=== PATIENT | female | born 1950 | race Caucasian/White ===

== ENCOUNTER 2016-09-18 08:19 | Emergency (ER) | payer MEDICARE ==
[~2016-09-18] VITALS: Ht 165.1 cm; Wt 90.0 kg
[2016-09-18] MEDS ORDERED: ACETAMINOPHEN 500MG TABLET PO ONE (09:00)
[2016-09-18 11:10] VITALS: BP 129/61
== END 2016-09-18 11:28 | disposition home or self-care (01) ==
LOC: ER 08:51
DX: S43.402A Unspecified sprain of left shoulder joint, initial encounter (principal); E11.9 Type 2 diabetes mellitus without complications; I10 Essential (primary) hypertension; E78.00 Pure hypercholesterolemia, unspecified; Z98.890 Other specified postprocedural states; X58.XXXA Exposure to other specified factors, initial encounter; Y93.89 Activity, other specified; Y92.018 Other place in single-family (private) house as the place of occurrence of the external cause
CPT/HCPCS: 73030; 99284

== ENCOUNTER 2021-01-21 16:16 | Inpatient (IN) | payer MEDICARE, MEDICAID ==
[~2021-01-21] VITALS: Ht 165.1 cm; Wt 83.9 kg
[2021-01-21 18:00] LABS: BASOPHILS % 0.4 % (0.0-2.0); EOSINOPHILS % 0.1 % (0.0-5.0); HEMATOCRIT. 34.5 % (36.0-48.0); HEMOGLOBIN. 11.1 g/dL (12.0-16.0); LYMPHOCYTES % 13.3 % (20.0-50.0); MEAN CORPUSCULAR HEMOGLOBIN 26.4 pg (28.0-32.0); MEAN CORPUSCULAR VOLUME 81.6 fL (81.0-99.0); MEAN PLATELET VOLUME 8.1 fl (7.4-10.4); MONOCYTES % 8.7 % (2.0-8.0); NEUTROPHILS % 77.5 % (40.0-76.0); PLATELET 199 x1000/uL (130-400); RED BLOOD CELL COUNT 4.22 mill/uL (4.2-5.4); RED CELL DISTRIBUTION WIDTH 17.7 % (11.6-14.6)
[2021-01-21 18:07] LABS: CHLORIDE 107 mEq/L (98-107)
[2021-01-21 18:09] LABS: INR 1.1; PARTIAL THROMBOPLASTIN TIME 28.8 sec (23.4-31.0); PROTHROMBIN TIME 11.5 sec (9.6-11.0)
[2021-01-21] MEDS ORDERED: FUROSEMIDE 40MG/4ML VIAL IVP SCH (18:45)
[2021-01-22] VITALS: BP 150/76
[2021-01-22] MEDS ORDERED: BENA5TAB6 PO (00:55)
[2021-01-22] MEDS ORDERED: CALC-1042 PO (00:55)
[2021-01-22] MEDS ORDERED: METF-414 PO (00:55)
[2021-01-22] MEDS ORDERED: ASPI-1497 PO (00:55)
[2021-01-22] MEDS ORDERED: DEXTROSE 50% WATER 50ML SYRINGE IV PRN (01:30)
[2021-01-22] MEDS ORDERED: ACETAMINOPHEN 325MG TABLET PO PRN (01:30)
[2021-01-22] MEDS ORDERED: HYDROCODONE/ACETAMINOPHEN 5/325MG TABLET PO PRN (01:30)
[2021-01-22] MEDS: FUROSEMIDE 40MG/4ML VIAL IVP SCH ×2 (02:00→08:33)
[2021-01-22] MEDS: GUAIFENESIN-DM 200MG-20MG/10ML UDC PO PRN ×2 (02:12→08:33)
[2021-01-22] MEDS ORDERED: NALOXONE HCL 0.4 MG/ML 1ML VIAL IV PRN (02:15)
[2021-01-22 04:00] VITALS: BP 116/71
[2021-01-22] MEDS: BLOOD SUGAR DIAGNOSTIC STRIP TEST SCH ×3 (06:50→16:40)
[2021-01-22] MEDS: INSULIN LISPRO 100 UNITS/ML SUBCUT SCH ×3 (06:50→16:54)
[2021-01-22 07:19] LABS: BASOPHILS % 0.5 % (0.0-2.0); EOSINOPHILS % 0.1 % (0.0-5.0); HEMATOCRIT. 33.8 % (36.0-48.0); HEMOGLOBIN. 11.1 g/dL (12.0-16.0); LYMPHOCYTES % 27.2 % (20.0-50.0); MEAN CORPUSCULAR HEMOGLOBIN 27.1 pg (28.0-32.0); MEAN CORPUSCULAR VOLUME 82.3 fL (81.0-99.0); MEAN PLATELET VOLUME 8.5 fl (7.4-10.4); MONOCYTES % 11.7 % (2.0-8.0); NEUTROPHILS % 60.5 % (40.0-76.0); PLATELET 185 x1000/uL (130-400); RED BLOOD CELL COUNT 4.11 mill/uL (4.2-5.4); RED CELL DISTRIBUTION WIDTH 17.6 % (11.6-14.6)
[2021-01-22 07:54] LABS: CHLORIDE 106 mEq/L (98-107)
[2021-01-22 08:00] VITALS: BP 127/73
[2021-01-22 08:01] LABS: LDL CHOLESTEROL 98 mg/dL (5-100)
[2021-01-22 08:04] LABS: HDL CHOLESTEROL 49 mg/dL (40-59)
[2021-01-22] MEDS ORDERED: ENOXAPARIN 40MG/0.4ML SYR SUBCUT SCH (09:00)
[2021-01-22 09:34] LABS: *AMPHETAMINES SCREEN URINE NEGATIVE (NEGATIVE); *BARBITURATES SCREEN URINE NEGATIVE (NEGATIVE); *BENZODIAZEPINES SCREEN URINE NEGATIVE (NEGATIVE); *COCAINE SCREEN URINE NEGATIVE (NEGATIVE); CANNABINOID URINE SCREEN NEGATIVE (NEGATIVE); METHADONE URINE SCREEN NEGATIVE (NEGATIVE); OPIATES URINE SCREEN NEGATIVE (NEGATIVE); PHENCYCLIDINE URINE SCREEN NEGATIVE (NEGATIVE)
[2021-01-22] MEDS ORDERED: BENZONATATE 100MG CAPSULE PO PRN (12:30)
[2021-01-22] MEDS ORDERED: ASPIRIN 81MG EC TABLET PO SCH (12:30)
[2021-01-22 16:00] VITALS: BP 135/66
[2021-01-22 18:00] VITALS: BP 135/66
[2021-01-22] MEDS ORDERED: DEXTL MT (18:45)
[2021-01-22] MEDS ORDERED: COR3 MT (18:45)
[2021-01-22] MEDS ORDERED: FLUT9.9S BOTHNSTRLS (18:45)
[2021-01-22] MEDS ORDERED: LOSA25TA26 MT (18:45)
[2021-01-22] MEDS ORDERED: BENZ-16 MT (18:45)
== END 2021-01-22 18:35 | disposition home health service (06) | DRG 152 ==
LOC: ER 16:16 → ENRESERV 23:07 → 7EST 01-22 00:07
PROVIDERS: ADMIT Internal Medicine; ATTEND Internal Medicine
DX: J06.9 Acute upper respiratory infection, unspecified (principal); I50.31 Acute diastolic (congestive) heart failure; I31.3 Pericardial effusion (noninflammatory); E11.9 Type 2 diabetes mellitus without complications; E78.00 Pure hypercholesterolemia, unspecified; D64.9 Anemia, unspecified; Z20.822 Contact with and (suspected) exposure to COVID-19; I07.1 Rheumatic tricuspid insufficiency; I11.0 Hypertensive heart disease with heart failure; J40 Bronchitis, not specified as acute or chronic; R09.82 Postnasal drip; T46.5X5A Adverse effect of other antihypertensive drugs, initial encounter; Y92.89 Other specified places as the place of occurrence of the external cause
CPT/HCPCS: 36415; 71045; 80048; 80053; 80061; 80305; 82962; 83036; 83880; 84484; 85025; 87426; 93005; 93306; 99285; J1650; J1815; J1940